=== PATIENT | female | born 1965 | race Asian ===

== ENCOUNTER 2017-03-13 06:34 | Emergency (ER) | payer MEDICAID, OTHER ==
[~2017-03-13] VITALS: Ht 165.1 cm; Wt 70.0 kg
[2017-03-13] MEDS ORDERED: HYDROCODONE/ACETAMINOPHEN 5/325MG TABLET PO ONE (08:30)
[2017-03-13 10:59] VITALS: BP 121/88
== END 2017-03-13 10:59 | disposition home or self-care (01) ==
LOC: ER 07:40
DX: S22.31XA Fracture of one rib, right side, initial encounter for closed fracture (principal); S00.83XA Contusion of other part of head, initial encounter; S00.512A Abrasion of oral cavity, initial encounter; Y04.0XXA Assault by unarmed brawl or fight, initial encounter; Y93.89 Activity, other specified; Y92.89 Other specified places as the place of occurrence of the external cause; Y99.8 Other external cause status
CPT/HCPCS: 70450; 70486; 71111; 99284